=== PATIENT | male | born 1980 | race Caucasian/White ===

== ENCOUNTER → 2020-02-10 | Outpatient (CLI) | payer OTHER ==
[~2020-02-10] MED LIST: AMOCLA500 PO; BENTYL PO; CEPH500 PO; DIPATR PO; HYDR1TAB94 PO; MULVITMIND PO; PROC10 PO; RXDIPATR PO; RXHYDACE PO; VANC250 PO
== END | disposition home or self-care (01) ==
LOC: LAB SHORT 09:58 → PLD 09:58
DX: L08.9 Local infection of the skin and subcutaneous tissue, unspecified (principal)
CPT/HCPCS: 87070; 87077; 87147; 87186; 87205

== ENCOUNTER → 2020-07-09 | Outpatient (CLI) | payer BC | LOC: LAB SHORT 17:46 → LAB 17:46 | DX: R21 Rash and other nonspecific skin eruption (principal) | CPT/HCPCS: 87070; 87205 ==

== ENCOUNTER 2023-02-25 08:16 | Day surgery (SDC) | payer OTHER ==
[~2023-02-25] VITALS: Ht 185.4 cm; Wt 111.9 kg
[2023-02-25] MEDS ORDERED: PAXIL2010 PO (08:52)
--- NOTE | 2023-02-25 09:18 | NUR ---
02/25/23 0918 Nadine Hicks BILATERAL CONTACTS REMOVED PRIOR TO PROCEDURE PER DR RIVERA
--- NOTE | 2023-02-25 09:59 | NUR ---
02/25/23 0959 Ibis Christianson 1ML OF EPI (1MG/ML) ADDED TO THE FIRST BAG OF LACTATED RINGER FOR IRRIGATION AT THE OPSITE BY DR PATINO.
[2023-02-25 11:00] VITALS: BP 120/89
== END 2023-02-25 11:21 | disposition home or self-care (01) ==
LOC: ORSCSDS 08:16
PROVIDERS: Orthopaedic Surgery
PROC: 0SBC4ZZ Excision of Right Knee Joint, Percutaneous Endoscopic Approach (ICD-10-PCS; principal; 2023-02-25 09:30)
DX: S83.241A Other tear of medial meniscus, current injury, right knee, initial encounter (principal); M23.41 Loose body in knee, right knee; Z79.899 Other long term (current) drug therapy
CPT/HCPCS: J0171; J0690; J1100; J1885; J2250; J2405; J2704; J3010; J7120

== ENCOUNTER 2023-07-20 06:17 | Day surgery (SDC) | payer OTHER ==
[~2023-07-20] VITALS: Ht 185.4 cm; Wt 113.9 kg
[~2023-07-20 06:17] MED LIST changes: +Lactated Ringer's 1,000 ML IV ONE; +PAXIL2010 PO
[2023-07-20] MEDS ORDERED: NS 50 ML IV ONE (06:25)
[2023-07-20] MEDS ORDERED: CeFAZolin Sodium 2,000 MG VIAL ONE (06:25)
[2023-07-20] MEDS ORDERED: Lactated Ringer's 1,000 ML IV ONE (06:41)
[2023-07-20] MEDS ORDERED: Midazolam HCl 1MG / ML 2ML Vial ONE (07:29)
[2023-07-20] MEDS ORDERED: propofoL 20 ML IV ONE (07:53)
[2023-07-20] MEDS ORDERED: Lidocaine HCl 1% 30 ML SDV XX ONE (07:54)
[2023-07-20 08:11] VITALS: BP 112/77
== END 2023-07-20 08:37 | disposition home or self-care (01) ==
LOC: ORSCSDS 06:17
PROVIDERS: Orthopaedic Surgery
PROC: 0HBGXZZ Excision of Left Hand Skin, External Approach (ICD-10-PCS; principal; 2023-07-20 07:30)
DX: R22.32 Localized swelling, mass and lump, left upper limb (principal); Z68.33 Body mass index [BMI] 33.0-33.9, adult; Z79.899 Other long term (current) drug therapy
CPT/HCPCS: 88304; J0690; J2250; J2704; J7120